=== PATIENT | male | born 1980 | race Caucasian/White ===

== ENCOUNTER → 2023-05-02 | Outpatient (CLI) | payer OTHER, SELFPAY ==
--- NOTE | 2023-05-02 12:53 | NM_ITS ---
CLINICAL: 42-year-old male with history of gastroesophageal reflux disease, epigastric pain and abdominal bloating. SEMI-SOLID PHASE 99m Tc SULFUR COLLOID GASTRIC EMPTYING STUDY COMPARISON: None available FINDINGS: The patient was administered 1.1 mCi of 99m Tc sulfur colloid mixed with oatmeal and consumed per os. Image acquisitions in the anterior-posterior projections were obtained for 60 minutes. There is prompt visualization of the stomach. There is no gastroesophageal reflux identified. The T ? raw data emptying was calculated to be 48.99 minutes, (Normal: 12-56 minutes). NM/Gastric Emptying Study IMPRESSION: 1. NORMAL 99m Tc sulfur colloid semi-solid phase (oatmeal) gastric emptying imaging examination. A. There is normal and preserved semi-solid phase gastric emptying compared to normal controls. (Koko et al, J Nucl Med Tech 38: 186, 2010). Electronically Signed: Raheem Fam, at 9:02 EDT ,
== END | disposition home or self-care (01) ==
PROVIDERS: PCP Family Medicine; Referring Provider Internal Medicine Gastroenterology; Visit Provider Internal Medicine Gastroenterology
DX: K21.9 Gastro-esophageal reflux disease without esophagitis (principal); R10.9 Unspecified abdominal pain; K92.1 Melena
CPT/HCPCS: 78264; A9541

== ENCOUNTER → 2023-06-03 | Outpatient (CLI) | payer OTHER, SELFPAY ==
[2023-06-03 12:03] LABS: Erythrocyte Sedimentation Rate 8 mm/hr (0-20)
[2023-06-03 12:05] LABS: Absolute Lymphocyte Count 2.36 X10^3/uL (0.83-4.51); Absolute Neutrophil Count 4.6 X10^3/uL (2.0-7.7); Basophil# 0.09 X10^3/uL; Basophil% 1.1 % (0-1); Eosinophil# 0.16 X10^3/uL; Hematocrit 46.5 % (40-54); Hemoglobin 15.3 g/dL (13.0-16.5); Lymphocyte # 2.36 X10^3/ul (0.83-4.51); Lymphocyte % 29.9 % (19-41); Mean Corp Hgb Conc 32.9 g/dL (32-36); Mean Corpuscular Hgb 29.7 pg (27.0-32.0); Mean Corpuscular Volume 90.1 fL (80-94); Mean Platelet Vol. 11.3 fl (6.2-12.0); Monocyte# 0.66 X10^3/uL; Monocyte% 8.4 % (0-10); NRBC Flagged by Analyzer 0 % (0-5); Neutrophil # 4.59 X10^3/uL (2.7-7.7); Neutrophil % 58.1 % (47-70); Platelet Count 272 K/mm3 (150-450); RBC Distribution Width SD 39.8 fl (35.1-43.9); Red Blood Count 5.16 M/mm3 (4.6-6.2); White Blood Count 7.9 K/mm3 (4.4-11.0)
[2023-06-03 12:51] LABS: ALB/GLOB Ratio 1.2 RATIO (0.9-2.4); AST(SGOT) 18 U/L (15-37); Alanine Aminotransfer ALT/SGPT 49 U/L (16-61); Albumin, Serum 3.8 g/dL (3.2-5.0); Alkaline Phosphatase 73 U/L (45-117); Amylase 59 U/L (25-115); Anion Gap 7 (5-15); BUN 14 mg/dL (7-18); BUN/Creat Ratio 13.3 RATIO (10-20); CRP < 2.90 mg/L (0.0-3.0); Calcium,Total 8.7 mg/dL (8.5-10.1); Chloride 107 mmol/L (98-107); Creatinine, Serum 1.05 mg/dL (0.70-1.30); EST Glomerular Filtration Rate 81 mL/min (>60); Est Glom Filt Rate - Afr Amer 98 mL/min (>60); Ferritin 283 ng/mL (26-388); Globulin 3.3 g/dL (2.2-4.2); Glucose 92 mg/dL (74-106); Lipase 38 U/L (13-75); Potassium 3.8 mmol/L (3.5-5.1); Protein, Total 7.1 g/dL (6.4-8.2); Sodium Level 139 mmol/L (136-145)
[2023-06-06 14:08] LABS: Beef <0.10 kU/L (Class 0); Chocolate <0.10 kU/L (Class 0); Clam <0.10 kU/L (Class 0); Codfish <0.10 kU/L (Class 0); Corn <0.10 kU/L (Class 0); Egg, White <0.10 kU/L (Class 0); Egg, Whole <0.10 kU/L (Class 0); Milk (Cow) <0.10 kU/L (Class 0); Peanut <0.10 kU/L (Class 0); Pork <0.10 kU/L (Class 0); SCALLOP <0.10 kU/L (Class 0); SESAME SEED <0.10 kU/L (Class 0); Shrimp <0.10 kU/L (Class 0); Soybean <0.10 kU/L (Class 0); Walnut, (Food) <0.10 kU/L (Class 0); Wheat <0.10 kU/L (Class 0)
[2023-06-06 16:09] LABS: Albumin 3.7 g/dL (2.9-4.4); Alpha-1-Globulins 0.2 g/dL (0.0-0.4); Alpha-2-Globulins 0.7 g/dL (0.4-1.0); Cytoplasmic Ab (C-ANCA) <1:20 titer (Neg:<1:20); Endomysial Antibody IgA Negative (Negative); Gamma Globulin 0.8 g/dL (0.4-1.8); Immunoglobulin A 175 mg/dL (90-386); Immunoglobulin G 819 mg/dL (603-1613); Immunoglobulin M 70 mg/dL (20-172); PROEL- TOTAL PROTEIN 6.5 g/dL (6.0-8.5); Perinuclear Ab (P-ANCA) <1:20 titer (Neg:<1:20); t-Transglutaminase IgA <2 U/mL (0-3)
== END | disposition home or self-care (01) ==
LOC: LAB 11:23
PROVIDERS: PCP Family Medicine; Referring Provider Internal Medicine Gastroenterology; Visit Provider Internal Medicine Gastroenterology
DX: K92.1 Melena (principal); R10.9 Unspecified abdominal pain; K21.9 Gastro-esophageal reflux disease without esophagitis
CPT/HCPCS: 36415; 80053; 82150; 82728; 82784; 83516; 83690; 84165; 85025; 85652; 86003; 86005; 86140; 86255; 86256; 86334

== ENCOUNTER → 2023-06-04 | Outpatient (CLI) | payer OTHER, SELFPAY ==
[2023-06-08 15:08] LABS: Pancreatic Elastase, Fecal 253 (>200)
[2023-06-09 22:06] LABS: Calprotectin, Stool 44 ug/g (0-120); Fats, Neutral Normal (.); Fats, Total Normal (.)
== END | disposition home or self-care (01) ==
LOC: LABSPEC 07:43
PROVIDERS: PCP Family Medicine; Referring Provider Internal Medicine Gastroenterology; Visit Provider Internal Medicine Gastroenterology
DX: K58.9 Irritable bowel syndrome, unspecified (principal); K92.1 Melena; R10.9 Unspecified abdominal pain; K21.9 Gastro-esophageal reflux disease without esophagitis
CPT/HCPCS: 82653; 82705; 83630; 83993; 87506

== ENCOUNTER 2023-06-08 05:29 | Day surgery (SDC) | payer OTHER, SELFPAY ==
[2023-06-08] VITALS (7 sets, daily range): BP systolic 117–142; BP diastolic 79–96; PULSE 88–105; RESP 16–18; TEMP 36.4–36.6; O2SAT 97–98; BMI 29.4
[2023-06-08] MEDS: Lactated Ringers 1,000 ML 15 ML IV (06:03)
--- NOTE | 2023-06-08 06:30 | IMM_PTH ---
PATIENT: YONIS NOVAK LOC: EN U#:[id number] AGE/SX: 42/M ROOM: RE06/08/[address]: Dr. Fabio Kennedy DO : 1980 BED: DIS: 06/08/2023 SPEC #: [id number] RECD: 06/08/23 13:55 STATUS: CHIKI RESaroj #: [id number] KELVIN: 06/08/23 06:[address]: Fabio Kennedy DEPT: IMMUNOHISTOCHEMISTRY RECD BY: Becka Jhaveri ENTERED: 06/08/23 13:57 SP TYPE: IMMUNO OTHR DR: Dr. Emily Smith DO Tissues: B - Stomach, NOS Procedures: H Pylori (initial) PHYSICIAN & INSTITUTION [place] [address] SPECIMEN INFORMATION: Tissue Source: B - Gastric body Clinical Info: GERD, abdominal pain, blood in stool Specimen Number: [id number] CPT code: 78204 METHODOLOGY: Deparaffinized sections of prefer/formalin-fixed tissue or PAP/DQ stained slides are incubated with monoclonal/polyclonal antibodies/oligonucleotide probes. Localization is made via biotin free immunoperoxidase method. Appropriate controls are performed and reacted as expected. Results on target cell population are indicated in the following table: RESULTS: ANTIBODY / CLONE RESULT Block B H Pylori (polyclonal) negative These tests were developed and their performance characteristics determined by [facility]. They may not have been cleared or approved by the U.S. Food and Drug Administration. The FDA has determined that such clearance or approval is not necessary. The above immunohistochemical/dualISH markers are ordered and reviewed by the Pathologist. INTERPRETATION: B. Gastric body, biopsy: Negative for Helicobacter pylori organisms. SJ:irineo 06/09/2023
--- NOTE | 2023-06-08 06:30 | EGD_PTH ---
PATIENT: YONIS NOVAK LOC: EN U#:[id number] AGE/SX: 42/M ROOM: RE06/08/[address]: Dr. Fabio Kennedy DO : 1980 BED: DIS: 06/08/2023 SPEC #: [id number] RECD: 06/08/23 09:42 STATUS: CHIKI RIIS #: [id number] KELVIN: 06/08/23 06:[address]: Fabio Kennedy DEPT: SURGICAL PATHOLOGY RECD BY: Luly Lyons ENTERED: 06/08/23 10:59 SP TYPE: EGD BIOPSY BRENDA DR: Dr. Emily Smith DO Tissues: A - Duodenum, NOS B - Gastric mucous membrane C - Sigmoid colon biopsy D - Ileum, NOS E - Cecum, NOS F - COLON BIOPSY G - COLON BIOPSY Procedures: Surgery Specimen Level IV HEADER OPERATION: Colonoscopy, EGD ([facility]), biopsy, polypectomy PRE-OP DIAGNOSIS: GERD, abdominal pain, blood in stool TISSUE SUBMITTED: A - Duodenum biopsy, B - Gastric body biopsy, C - Sigmoid polyp, D - Terminal ileum biopsy, E - Cecum polyp biopsy, F - Hepatic flexure polyp, G - Random colonic biopsy MICROSCOPIC DIAGNOSIS A. Duodenum, biopsy: Fragments of duodenal mucosa, no pathologic diagnosis. B. Gastric body, biopsy: Mild gastritis. See microscopic description and comment. C. Sigmoid polyp, polypectomy: Hyperplastic polyp. D. Terminal ileum, biopsy: Fragments of small intestinal mucosa, no pathologic diagnosis. E. Cecum polyp, biopsy: A fragment of colonic mucosa, no pathologic diagnosis. F. Hepatic flexure polyp, polypectomy: Tubular adenoma. Fragments of hyperplastic polyp. G. Colon, random biopsy: Fragments of colonic mucosa, no pathologic diagnosis. SJ:irineo 06/09/2023 COMMENT B. The results of immunohistochemistry for Helicobacter pylori will be reported separately ([id number]). MICROSCOPIC DESCRIPTION Slides are reviewed. B. The specimen shows fragments of gastric mucosa with chronic inflammatory cell infiltrates in the lamina propria consisting of lymphocytes and plasma cells, consistent with mild chronic gastritis. GROSS DESCRIPTION A - Received in fixative is one container labeled with the patient's name and designated duodenum biopsy. The specimen consists of multiple irregular fragments of light chavez soft tissue that in aggregate measure 1.2 x 0.5 x 0.1 cm. The specimen is totally submitted in one cassette. B - Received in fixative is one container labeled with the patient's name and designated gastric body biopsy. The specimen consists of one irregular fragment of light chavez soft tissue that measures 0.5 x 0.5 x 0.1 cm. The specimen is totally submitted in one cassette. C - Received in fixative is one container labeled with the patient's name and designated sigmoid polyp. The specimen consists of a pink-red polyp measuring 0.7 x 0.7 x 0.6 cm. The presumed base is inked. The polyp is serially sectioned and submitted entirely in one cassette. D - Received in fixative is one container labeled with the patient's name and designated terminal ileum biopsy. The specimen consists of multiple irregular fragments of light chavez soft tissue that in aggregate measure 1.2 x 0.4 x 0.1 cm. The specimen is totally submitted in one cassette. E - Received in fixative is one container labeled with the patient's name and designated cecum polyp biopsy. The specimen consists of one irregular fragment of light chavez soft tissue that measures 0.5 x 0.3 x 0.1 cm. The specimen is totally submitted in one cassette. F - Received in fixative is one container labeled with the patient's name and designated hepatic flexure polyp. The specimen consists of a pink-red polyp measuring 0.9 x 0.7 x 0.7 cm. The presumed base is inked. The polyp is serially sectioned. Also present in the container are multiple fragments of chavez soft tissue measuring in aggregate 1.2 x 0.2 x 0.1 cm. The entire specimen is submitted in one cassette. G - Received in fixative is one container labeled with the patient's name and designated random colonic biopsy. The specimen consists of multiple irregular fragments of light chavez soft tissue that in aggregate measure 1.5 x 0.4 x 0.1 cm. The specimen is totally submitted in one cassette. / SJ:rg 06/08/2023 TC:1 CPT: 51055 x7
--- NOTE | 2023-06-08 06:32 | HP.PCM_ITS ---
History and Physical Date of Admission: 06/08/23 YONIS NOVAK, is a 42 M who presents to the office today for initial consult. PCP OV 6.8.23 to establish care. Notes increased diarrhea with one episode of blood, abdominal pain and cyst in anal area. Chronic reflux symptoms and reported esophageal spasms; feels cinnamon, black pepper, night shade vegetables and dairy are triggers.? Pt reports GI issues past 5-6 years. Has long hx of GERD. Worse at night. Will wake up and aspirate on acid. Recently started taking daily Lansoprazole at lunchtime which has improved his sx. Experiences esophageal spasms. Worse when he has an empty stomach. Relieved by drinking water but then triggers his reflux. Bowels are irregular. Mostly depending on diet. Has tried elimination diet with mixed results. Can have one normal BM a day but has diarrhea with trigger foods. Has seen blood in stool a few times. ? ROS Const Constitutional: Positive for fatigue ENT ENT: No difficulty swallowing Gastro GI: Positive for change in bowel habits, constipation, diarrhea, heartburn and Blood in stool; No abdominal pain, belching, bloating, change in stool character, coffee ground emesis, cramping, difficulty swallowing, feeling full early, excessive flatus, i ncontinent of stools, Vomiting blood/hematemesis, loose stools, Black,tarry stools, nausea/dyspepsia, pain with swallowing, vomiting or other Musc Musculoskeletal: Positive for joint pain, back pain, joint swelling, muscle cramps, stiffness and restless legs Skin Skin: No yellowing of the eye or itchy eyes Neuro Neurology: Positive for restless legs Psych Psychiatric: Positive for anxiety and Positive for depression Endo Endocrine: Positive for fatigue Aller/Imm Allergy/Immunologic: No itchy eyes Damion/Lymp Hematologic/Lymphatic: No easy bleeding or easy bruising Exam Const General: cooperative and comfortable Nutritional Appearance: average body habitus and well nourished HENMT Head: normal to inspection Ears: hearing grossly normal bilaterally Nose: external nose normal Face and sinus: normal facial exam Mouth: oral mucosae normal Throat: posterior oropharynx normal Eyes General: appearance normal, both eyes and all related structures Neck Neck: normal visual inspection Chest Chest palpation & inspection: normal inspection of the chest and normal palpation of entire chest wall Resp Effort & Inspection: normal respiratory effort Auscultation: Bilateral: Clear to Auscultation Cardio Palpation: normal PMI Rate: regular rate Rhythm: regular rhythm GI Inspection: normal to inspection Auscultation: normal bowel sounds Percussion: normal to percussion Palpation: no hepatosplenomegaly Skin General: no rashes or lesions noted Neuro General: patient alert Extrem General: normal to inspection Psych Affect: normal affect Assessment and Plan Assessment and Plan (1) GERD (gastroesophageal reflux disease): Status: Acute Plan: He will need to undergo upper endoscopy to evaluate his upper GI tract for gastroesophageal reflux disease. We will give him short course of pantoprazole therapy to see if he has any improvement in his symptoms. You need to be screened for Shultz's esophagus (2) Abdominal pain: Status: Acute Plan: hiatal hernia and any other upper GI pathology that may be contributing to his symptoms. Differential diagnosis for his bloating does include air swallowing, excess acid therefore excess bicarbonate that goes down to bicarbonate. (3) Blood in stool: Status: Acute Plan: He will undergo evaluation of his lower GI tract for the blood in the stool. He was explained alternatives, risk, benefits include not withstanding bleeding, infection, sepsis, perforation, need for emergent surgery . He will have an ASA of 2. Orders: Orders ELLEN + Protein Elect, Serum Today K21.9 - Gastro-esophageal reflux disease without esophagitis, K92.1 - Melena, R10.9 - Unspecified abdominal pain Ferritin Today K21.9 - Gastro-esophageal reflux disease without esophagitis, K92.1 - Melena, R10.9 - Unspecified abdominal pain ANCA Today K21.9 - Gastro-esophageal reflux disease without esophagitis, K92.1 - Melena, R10.9 - Unspecified abdominal pain Celiac Disease Profile Today K21.9 - Gastro-esophageal reflux disease without esophagitis, K92.1 - Melena, R10.9 - Unspecified abdominal pain Comprehensive Metabolic Profil Today K21.9 - Gastro-esophageal reflux disease without esophagitis, K92.1 - Melena, R10.9 - Unspecified abdominal pain CBC W/Diff, Automated Today K21.9 - Gastro-esophageal reflux disease without esophagitis, K92.1 - Melena, R10.9 - Unspecified abdominal pain CRP Today K21.9 - Gastro-esophageal reflux disease without esophagitis, K92.1 - Melena, R10.9 - Unspecified abdominal pain Erythrocyte Sed Rate Today K21.9 - Gastro-esophageal reflux disease without esophagitis, K92.1 - Melena, R10.9 - Unspecified abdominal pain Miscellaneous Lab Procedure Today K21.9 - Gastro-esophageal reflux disease without esophagitis, K92.1 - Melena, R10.9 - Unspecified abdominal pain Amylase Today K21.9 - Gastro-esophageal reflux disease without esophagitis, K92.1 - Melena, R10.9 - Unspecified abdominal pain Lipase Today K21.9 - Gastro-esophageal reflux disease without esophagitis, K92.1 - Melena, R10.9 - Unspecified abdominal pain Fecal Fat, Qualitative Today K21.9 - Gastro-esophageal reflux disease without esophagitis, K92.1 - Melena, R10.9 - Unspecified abdominal pain Pancreatic Elastase, Fecal Today K21.9 - Gastro-esophageal reflux disease without esophagitis, K92.1 - Melena, R10.9 - Unspecified abdominal pain BERNARDO Comprehensive Panel Today K21.9 - Gastro-esophageal reflux disease without esophagitis, K92.1 - Melena, R10.9 - Unspecified abdominal pain Immunoglobulins G/A/M/E Today K21.9 - Gastro-esophageal reflux disease without esophagitis, K92.1 - Melena, R10.9 - Unspecified abdominal pain Stool Lactoferrin/WBC Today K21.9 - Gastro-esophageal reflux disease without esophagitis, K58.9 - Irritable bowel syndrome without diarrhea, K92.1 - Melena, R10.9 - Unspecified abdominal pain ENTERIC PATHOGEN PANEL STOOL Today K21.9 - Gastro-esophageal reflux disease without esophagitis, K58.9 - Irritable bowel syndrome without diarrhea, K92.1 - Melena, R10.9 - Unspecified abdominal pain Calprotectin, Stool Today K21.9 - Gastro-esophageal reflux disease without esophagitis, K92.1 - Melena, R10.9 - Unspecified abdominal pain Allergen, Food Profile Today K21.9 - Gastro-esophageal reflux disease without esophagitis, K92.1 - Melena, R10.9 - Unspecified abdominal pain Allergen, Rast Food Profile Today K21.9 - Gastro-esophageal reflux disease without esophagitis, K92.1 - Melena, R10.9 - Unspecified abdominal pain Gastric Emptying Study Today K21.9 - Gastro-esophageal reflux disease without esophagitis, K92.1 - Melena, R10.9 - Unspecified abdominal pain I have examined the patient and the H&P has been reviewed. There are no clinical changes since date of exam.
--- NOTE | 2023-06-08 07:11 | OP.CCLET_ITS ---
06/08/2023 Emily Smith [address] [place] [address] Re : Upper GI endoscopy procedure for Lee Lancaster Dear Dr. Smith This procedure was performed on Thursday, June 08, 2023. My impressions and recommendations are as follows: Impressions : - Grade I esophageal varices. - Erythematous mucosa in the gastric body. Biopsied. - Congested duodenal mucosa. Biopsied. Recommendations : - Discharge patient to home. - Resume previous diet. - Continue present medications. - Await pathology results. - Ultrasound of the liver My findings are described in the full procedure note, which is enclosed. If I can be of further assistance, please feel free to contact me at . Sincerely, Fabio Kennedy, 06/08/2023 7:10:24 AM This report has been signed electronically.
--- NOTE | 2023-06-08 07:11 | OP.EGD_ITS ---
Patient Name: Lee Lancaster Procedure Date: 06/08/2023 6:32 AM Date of : 1980 Age: 42 Procedure: Upper GI endoscopy Indications: Epigastric abdominal pain, Dyspepsia Providers: Fabio Kennedy DO Referring MD: Emily Smith Medicines: Monitored Anesthesia Care Patient Profile: This is a 42 year old male. Refer to note in patient chart for documentation of history and physical. Patient has symptoms of chronic epigastric abdominal pain and chronic dyspepsia. Complications: No immediate complications. Procedure: Pre-Anesthesia Assessment: - Prior to the procedure, a History and Physical was performed, and patient medications and allergies were reviewed. The patient is competent. The risks and benefits of the procedure and the sedation options and risks were discussed with the patient. All questions were answered and informed consent was obtained. Patient identification and proposed procedure were verified by the physician in the pre-procedure area. Mental Status Examination: alert and oriented. Airway Examination: normal oropharyngeal airway and neck mobility. Respiratory Examination: clear to auscultation. CV Examination: normal. Prophylactic Antibiotics: The patient does not require prophylactic antibiotics. Prior Anticoagulants: The patient has taken no anticoagulant or antiplatelet agents. ASA Grade Assessment: II - A patient with mild systemic disease. After reviewing the risks and benefits, the patient was deemed in satisfactory condition to undergo the procedure. The anesthesia plan was to use monitored anesthesia care (MAC). Immediately prior to administration of medications, the patient was re-assessed for adequacy to receive sedatives. The heart rate, respiratory rate, oxygen saturations, blood pressure, adequacy of pulmonary ventilation, and response to care were monitored throughout the procedure. The physical status of the patient was re-assessed after the procedure. After obtaining informed consent, the endoscope was passed under direct vision. Throughout the procedure, the patient's blood pressure, pulse, and oxygen saturations were monitored continuously. The Colonoscope was introduced through the mouth, and advanced to the second part of duodenum. The upper GI endoscopy was accomplished without difficulty. The patient tolerated the procedure well. Scope In: 6:39:30 AM Scope Out: 6:43:43 AM Total Procedure Duration Time 0 hours 4 minutes 13 seconds Findings: Grade I varices were found in the lower third of the esophagus. They were 5 mm in largest diameter. Patchy mildly erythematous mucosa without bleeding was found in the gastric body. Biopsies were taken with a cold forceps for histology. Verification of patient identification for the specimen was done. Estimated blood loss was minimal. Biopsies were taken with a cold forceps for Helicobacter pylori testing. Verification of patient identification for the specimen was done. Estimated blood loss was minimal. Patchy mildly congested mucosa without active bleeding and with no stigmata of bleeding was found in the duodenal bulb, in the first portion of the duodenum and in the second portion of the duodenum. Biopsies were taken with a cold forceps for histology. Verification of patient identification for the specimen was done. Estimated blood loss was minimal. Impression: - Grade I esophageal varices. - Erythematous mucosa in the gastric body. Biopsied. - Congested duodenal mucosa. Biopsied. Recommendation: - Discharge patient to home. - Resume previous diet. - Continue present medications. - Await pathology results. - Ultrasound of the liver Procedure Code(s): --- Professional --- 51999, Esophagogastroduodenoscopy, flexible, transoral; with biopsy, single or multiple CPT copyright 2021 [employer]. All rights reserved. The codes documented in this report are preliminary and upon braille coder review may be revised to meet current compliance requirements. Fabio Kennedy DO 06/08/2023 7:10:24 AM This report has been signed electronically. Number of Addenda: 0 Note Initiated On: 06/08/2023 6:32 AM
--- NOTE | 2023-06-08 07:15 | OP.COLON_ITS ---
Patient Name: Lee Lancaster Procedure Date: 06/08/2023 6:44 AM Date of : 1980 Age: 42 Procedure: Colonoscopy Indications: Screening for colorectal malignant neoplasm Providers: Fabio Kennedy DO Referring MD: Emily Smith Medicines: Monitored Anesthesia Care Patient Profile: This is a 42 year old male. Refer to note in patient chart for documentation of history and physical. Patient has symptoms of chronic epigastric abdominal pain and chronic dyspepsia. Last Colonoscopy: none. The patient's first colonoscopy is today. Complications: No immediate complications. Procedure: Pre-Anesthesia Assessment: - Prior to the procedure, a History and Physical was performed, and patient medications and allergies were reviewed. The patient is competent. The risks and benefits of the procedure and the sedation options and risks were discussed with the patient. All questions were answered and informed consent was obtained. Patient identification and proposed procedure were verified by the physician in the pre-procedure area. Mental Status Examination: alert and oriented. Airway Examination: normal oropharyngeal airway and neck mobility. Respiratory Examination: clear to auscultation. CV Examination: normal. Prophylactic Antibiotics: The patient does not require prophylactic antibiotics. Prior Anticoagulants: The patient has taken no anticoagulant or antiplatelet agents. ASA Grade Assessment: II - A patient with mild systemic disease. After reviewing the risks and benefits, the patient was deemed in satisfactory condition to undergo the procedure. The anesthesia plan was to use monitored anesthesia care (MAC). Immediately prior to administration of medications, the patient was re-assessed for adequacy to receive sedatives. The heart rate, respiratory rate, oxygen saturations, blood pressure, adequacy of pulmonary ventilation, and response to care were monitored throughout the procedure. The physical status of the patient was re-assessed after the procedure. After I obtained informed consent, the scope was passed under direct vision. Throughout the procedure, the patient's blood pressure, pulse, and oxygen saturations were monitored continuously. The Colonoscope was introduced through the anus and advanced to the cecum, identified by appendiceal orifice and ileocecal valve. The colonoscopy was performed without difficulty. The patient tolerated the procedure well. The quality of the bowel preparation was adequate. The terminal ileum, ileocecal valve, appendiceal orifice, and rectum were photographed. Scope In: 6:45:31 AM Scope Withdrawal Time 0 hours 12 minutes 27 seconds Scope Out: 7:02:18 AM Total Procedure Duration Time 0 hours 16 minutes 47 seconds Findings: Hemorrhoids were found on perianal exam. Non-bleeding internal hemorrhoids were found during retroflexion. The hemorrhoids were mild, small and Grade I (internal hemorrhoids that do not prolapse). Multiple small-mouthed diverticula were found in the recto-sigmoid colon, sigmoid colon and descending colon. Three sessile polyps were found in the sigmoid colon and hepatic flexure. The polyps were 1 to 2 mm in size. These polyps were removed with a saline injection-lift technique using a cold snare. Resection and retrieval were complete. Verification of patient identification for the specimen was done. Estimated blood loss was minimal. A 4 mm polyp was found in the cecum. The polyp was sessile. The polyp was removed with a jumbo cold forceps. Resection and retrieval were complete. Verification of patient identification for the specimen was done. Estimated blood loss was minimal. A patchy area of the distal ileum was congested. Biopsies were taken with a cold forceps for histology. Verification of patient identification for the specimen was done. Estimated blood loss was minimal. Impression: - Hemorrhoids found on perianal exam. - Non-bleeding internal hemorrhoids. - Diverticulosis in the recto-sigmoid colon, in the sigmoid colon and in the descending colon. - Three 1 to 2 mm polyps in the sigmoid colon and at the hepatic flexure, removed using injection-lift and a cold snare. Resected and retrieved. - One 4 mm polyp in the cecum, removed with a jumbo cold forceps. Resected and retrieved. - Congested mucosa in the distal ileum. Biopsied. Recommendation: - Discharge patient to home. - Resume previous diet. - Continue present medications. - Await pathology results. - Repeat colonoscopy in 3 years for surveillance. Procedure Code(s): --- Professional --- 79382, Colonoscopy, flexible; with removal of tumor(s), polyp(s), or other lesion(s) by snare technique 67412, 59, Colonoscopy, flexible; with biopsy, single or multiple 38168, Colonoscopy, flexible; with directed submucosal injection(s), any substance CPT copyright 2021 [employer]. All rights reserved. The codes documented in this report are preliminary and upon sand bobber review may be revised to meet current compliance requirements. Fabio Kennedy DO 06/08/2023 7:15:13 AM This report has been signed electronically. Number of Addenda: 0 Note Initiated On: 06/08/2023 6:44 AM
--- NOTE | 2023-06-08 07:15 | OP.CCLET_ITS ---
06/08/2023 Emily Smith [address] [place] [address] Re : Colonoscopy procedure for Lee [place] Dear Dr. Smith This procedure was performed on Thursday, June 08, 2023. My impressions and recommendations are as follows: Impressions : - Hemorrhoids found on perianal exam. - Non-bleeding internal hemorrhoids. - Diverticulosis in the recto-sigmoid colon, in the sigmoid colon and in the descending colon. - Three 1 to 2 mm polyps in the sigmoid colon and at the hepatic flexure, removed using injection-lift and a cold snare. Resected and retrieved. - One 4 mm polyp in the cecum, removed with a jumbo cold forceps. Resected and retrieved. - Congested mucosa in the distal ileum. Biopsied. Recommendations : - Discharge patient to home. - Resume previous diet. - Continue present medications. - Await pathology results. - Repeat colonoscopy in 3 years for surveillance. My findings are described in the full procedure note, which is enclosed. If I can be of further assistance, please feel free to contact me at . Sincerely, Fabio Kennedy DO 06/08/2023 7:15:13 AM This report has been signed electronically.
== END 2023-06-08 07:51 | disposition home or self-care (01) ==
LOC: EN 05:35 → AC 05:35
PROVIDERS: PCP Family Medicine; Referring Provider Family Medicine; Visit Provider Internal Medicine Gastroenterology
PROC: 0DJD8ZZ Inspection of Lower Intestinal Tract, Via Natural or Artificial Opening Endoscopic (ICD-10-PCS; CPT 45378; principal; 2023-06-08 06:25)
DX: Z12.11 Encounter for screening for malignant neoplasm of colon (principal); I85.00 Esophageal varices without bleeding; K57.30 Diverticulosis of large intestine without perforation or abscess without bleeding; K63.89 Other specified diseases of intestine; K21.9 Gastro-esophageal reflux disease without esophagitis; K31.89 Other diseases of stomach and duodenum; K64.0 First degree hemorrhoids; R10.9 Unspecified abdominal pain; K92.1 Melena; D12.3 Benign neoplasm of transverse colon; K29.70 Gastritis, unspecified, without bleeding
CPT/HCPCS: 45380; 45385; 43239; 45381; 88305; 88342; J7120; J2405

== ENCOUNTER → 2023-06-30 | Outpatient (CLI) | payer SELFPAY ==
--- NOTE | 2023-06-30 09:20 | US_ITS ---
STUDY: ABDOMINAL ULTRASOUND - RIGHT UPPER QUADRANT; ELASTOGRAPHY REASON FOR VISIT: Male, 42 years old. Esophageal varices. TECHNIQUE: Ultrasound evaluation of the right upper quadrant was performed with real-time and static majano-scale imaging. Point quantification shear wave elastography was performed (Agensys). TECHNICAL QUALITY: Adequate. COMPARISON: None. FINDINGS: Liver: The liver is mildly enlarged and measures 17.2 cm. There is normal echogenicity of the liver. The bile ducts are within normal limits. There is hepatic color flow. The direction of portal flow is hepatopetal. There is no demonstrated mass lesion. Median liver stiffness measured 7.5 kPa. Gallbladder: Normal distended gallbladder. The gallbladder wall measures 1.8 mm. There is a negative sonographic Bryan''s sign. There is no pericholecystic fluid. There are no gallstones. Common Bile Duct (C.B.D.): The common bile duct measures 3.8 mm. Pancreas: There is increased echogenicity of the pancreas. There is no demonstrated pancreatic mass or cyst. Right Kidney: Normal size of the right kidney. The right kidney measures 12.3 cm x 6.1 cm x 6.4 cm. Normal renal cortex. The right cortex measures 1.6 cm. There is no demonstrated renal mass or cyst. There is no right hydronephrosis. US/ABD Limited w/ Elastography IMPRESSION: 1. Liver stiffness measures 7.5 kPa compatible with F2-F3 (Mild to moderate liver fibrosis) Metavir score. Electronically Signed: Adama Monson MD at 14:09 EDT ,
== END | disposition home or self-care (01) ==
PROVIDERS: PCP Family Medicine; Referring Provider Internal Medicine Gastroenterology; Visit Provider Internal Medicine Gastroenterology
DX: I85.00 Esophageal varices without bleeding (principal)
CPT/HCPCS: 76705; 76981

== ENCOUNTER → 2023-07-13 | Outpatient (CLI) | payer OTHER, SELFPAY ==
--- NOTE | 2023-07-13 07:07 | CT_ITS ---
STUDY: CTA CHEST, ABDOMEN T PELVIS WITH CONTRAST REASON FOR EXAM: Male, 43 years old. Esophageal varices, abdominal pain RADIATION DOSAGE (If Supplied By Facility): CTDIvol = ( 15.05 ) mGy, DLP = ( 1375.96 ) mGycm TECHNIQUE: Transaxial imaging was performed following intravenous administration of IV 100mL Isovue-370. Multiplanar coronal and sagittal images were reformatted. Individualized dose optimization techniques were used for this CT. COMPARISON: No relevant priors. FINDINGS: CHEST Small benign-appearing bilateral axillary lymph nodes. Minimal linear atelectasis and/or scarring in the right midlung. There is no demonstrated pleural abnormality. Normal heart and pericardium. Normal mediastinum. Normal hilar regions. Normal unenhanced pulmonary arteries. Normal aorta arch and descending thoracic aorta. Normal osseous structures. There is no demonstrated abnormality of the visualized upper abdomen. ABDOMEN The visualized lung bases are unremarkable. The visualized portions of the heart are within normal limits. There is decreased attenuation of the liver consistent with steatosis. Normal gallbladder and extrahepatic biliary system. Normal spleen. Normal pancreas. Normal bilateral adrenal glands. Normal right kidney. There is a 10.8 cm x 10.3 cm cyst in the upper lateral anterior aspect of the left kidney. There is a small hiatal hernia. Normal small intestine. Normal colon. The appendix is visualized and appears normal. Normal abdominal aorta. Normal inferior vena cava. Normal retroperitoneum. Normal abdominal wall. There are degenerative changes of the visualized lumbar spine. PELVIS Normal urinary bladder. Normal visualized small intestine. Normal visualized colon. There is no pelvic fluid. There is no pelvic lymphadenopathy or mass lesion. Normal visualized pelvic arteries. Normal abdominal wall. Normal osseous structures. CT/CTA Chst, Abd, Pel W and/or WO IMPRESSION: Normal enhanced CTA chest, abdomen T pelvis examination. Electronically Signed: Adama Monson MD at 14:29 EDT ,
[2023-07-13 07:32] LABS: CREATININE FINGERSTICK 1.2 mg/dL (0.70-1.30); EGFR FINGERSTICK > 60.0000 mL/min (>60)
== END | disposition home or self-care (01) ==
LOC: CT 07:07
PROVIDERS: PCP Family Medicine; Referring Provider Internal Medicine Gastroenterology; Visit Provider Internal Medicine Gastroenterology
DX: I85.00 Esophageal varices without bleeding (principal); R10.9 Unspecified abdominal pain
CPT/HCPCS: 71275; 74174; Q9967

== ENCOUNTER → 2023-08-29 | Outpatient (CLI) | payer OTHER, SELFPAY ==
--- NOTE | 2023-08-29 10:34 | MRI_ITS ---
MRI Abdomen w/ and w/out contrast 08/29/2023 10:54 AM COMPARISON: None CLINICAL HISTORY: non-cirrhotic portal HTN TECHNIQUE: Multiplanar T1 and T2 weighted, diffusion and dynamic post-gadolinium images were obtained through the abdomen before and after administration of 23 cc of IV Clariscan. FINDINGS: Liver: Slight increase in intensity on T1 opposed phase images compared to T1 in phase images. Overall intensity on T2-weighted images is significantly decreased. Gallbladder: Unremarkable Pancreas: Slight overall decrease in intensity on T2-weighted images. Spleen: Unremarkable Adrenal Glands: Unremarkable Kidneys: Simple 10.2 cm simple cyst in the left kidney. GI Tract: Unremarkable Lymphadenopathy: Absent Reproductive: Unremarkable Bladder: Unremarkable Ascites: Absent Bones: No suspicious lesions MRI/MRI Abd WITH and W/O Contrast IMPRESSION: Findings most suspicious for primary hemachromatosis. Correlate with lab values. 10.2 cm simple cyst in the left kidney. Electronically Signed: Jacobo Rasmussen MD at 19:28 EST ,
[2023-08-29 11:01] LABS: CREATININE FINGERSTICK 1.4 mg/dL (0.70-1.30)
== END | disposition home or self-care (01) ==
PROVIDERS: PCP Family Medicine; Referring Provider Internal Medicine Gastroenterology; Visit Provider Internal Medicine Gastroenterology
DX: K76.6 Portal hypertension (principal)
CPT/HCPCS: 74183; A9575; A4216

== ENCOUNTER → 2023-09-07 | Outpatient (CLI) | payer OTHER, SELFPAY ==
[2023-09-07 16:16] LABS: Absolute Lymphocyte Count 2.62 X10^3/uL (0.83-4.51); Absolute Neutrophil Count 4.9 X10^3/uL (2.0-7.7); Basophil# 0.09 X10^3/uL; Basophil% 1.1 % (0-1); Eosinophil# 0.18 X10^3/uL; Eosinophils% 2.1 % (0-5); Hemoglobin 15.7 g/dL (13.0-16.5); Lymphocyte # 2.62 X10^3/ul (0.83-4.51); Lymphocyte % 30.9 % (19-41); Mean Corpuscular Hgb 28.6 pg (27.0-32.0); Mean Corpuscular Volume 89.4 fL (80-94); Mean Platelet Vol. 11.2 fl (6.2-12.0); Monocyte# 0.68 X10^3/uL; NRBC Flagged by Analyzer 0 % (0-5); Neutrophil # 4.87 X10^3/uL (2.7-7.7); Neutrophil % 57.5 % (47-70); Platelet Count 294 K/mm3 (150-450); RBC Distribution Width CV 12.1 % (11.6-14.6); RBC Distribution Width SD 39.8 fl (35.1-43.9); Red Blood Count 5.48 M/mm3 (4.6-6.2); White Blood Count 8.5 K/mm3 (4.4-11.0)
[2023-09-07 16:46] LABS: ALB/GLOB Ratio 1.1 RATIO (0.9-2.4); AST(SGOT) 16 U/L (15-37); Alanine Aminotransfer ALT/SGPT 33 U/L (16-61); Alkaline Phosphatase 90 U/L (45-117); Anion Gap 6 (5-15); BUN 12 mg/dL (7-18); BUN/Creat Ratio 10.1 RATIO (10-20); Calcium,Total 9.3 mg/dL (8.5-10.1); Chloride 105 mmol/L (98-107); Cholesterol 217 mg/dL (200); Creatinine, Serum 1.19 mg/dL (0.70-1.30); EST Glomerular Filtration Rate 70 mL/min (>60); Est Glom Filt Rate - Afr Amer 85 mL/min (>60); Ferritin 304 ng/mL (26-388); Globulin 3.6 g/dL (2.2-4.2); Glucose 99 mg/dL (74-106); High Density Lipoprotein 57 mg/dL; Iron Binding Capacity,Total 312 ug/dL (250-450); Potassium 3.9 mmol/L (3.5-5.1); Protein, Total 7.6 g/dL (6.4-8.2); Sodium Level 137 mmol/L (136-145); Triglycerides 280 mg/dL; Very Low Density Lipoprotein 56 mg/dL (5-40)
[2023-09-07 16:52] LABS: Hemoglobin A1c 4.9 % (3.8-5.6)
[2023-09-07 17:14] LABS: HIV - WCH Non-Reactive (Nonreactive)
[2023-09-09 15:07] LABS: Anti-Mitochondrial AB <20.0 Units (0.0-20.0)
[2023-09-16 21:07] LABS: AFP, Tumor Marker < 1.8 ng/mL (0.0-6.9); Angiotensin Convert Enzyme 26 U/L (14-82); Anti-Smooth Muscle ABS 3 Units (0-19); Ceruloplasmin 23.1 mg/dL (16.0-31.0); Copper, Serum or Plasma 102 ug/dL (69-132); HEPATITIS B SURFACE AG Negative (Negative); Haptoglobin 150 mg/dL (23-355); Hep C Antibodies Non Reactive (Non Reactive); Hepatitis A IgM Antibody Negative (Negative); Hepatitis B Core AB IgM Negative (Negative); Transferrin 241 mg/dL (177-329)
== END | disposition home or self-care (01) ==
PROVIDERS: PCP Family Medicine; Visit Provider Internal Medicine Gastroenterology
DX: E83.119 Hemochromatosis, unspecified (principal)
CPT/HCPCS: 36415; 80053; 80061; 80074; 82105; 82164; 82390; 82525; 82728; 83010; 83036; 83516; 83550; 84466; 85025; 86703

== ENCOUNTER → 2023-12-27 | Outpatient (CLI) | payer OTHER, SELFPAY ==
[2023-12-27] VITALS (13 sets, daily range): BP systolic 116–142; BP diastolic 82–95; PULSE 80–88; RESP 11–19; TEMP 36.7; O2SAT 95–100; BMI 30.8
[2023-12-27 08:13] LABS: Platelet Count 257 K/mm3 (150-450)
[2023-12-27 08:34] LABS: Prothrombin Time (Protime)PT. 13.2 SECONDS (11.7-14.9)
[2023-12-27] MEDS: Midazolam 2 MG/2 ML Syringe IV (08:51)
[2023-12-27] MEDS: 0.9% Normal Saline (250mL Bag) 250 ML 15 ML IV (08:51)
[2023-12-27] MEDS: fentaNYL 100 MCG/2 ML Ampul IV (08:54)
[2023-12-27] MEDS: Lidocaine 2% (20 ml mdv) 20 ML Vial INFILT (09:05)
--- NOTE | 2023-12-27 09:05 | LIVB_PTH ---
PATIENT: YONIS NOVAK LOC: CT U#:[id number] AGE/SX: 43/M ROOM: RE12/27/[address]: Dr. Fabio Kennedy DO : 1980 BED: DIS: 12/27/2023 SPEC #: [id number] RECD: 12/27/23 09:58 STATUS: CHIKI RESaroj #: [id number] KELVIN: 12/27/23 09:[address]: Fabio Kennedy DEPT: SURGICAL PATHOLOGY RECD BY: Luly Lyons ENTERED: 12/27/23 09:58 SP TYPE: LIVER BX BRENDA DR: DO Jes [place], COB SAWYER-C Tissues: Liver, NOS Procedures: PAS with Diastase (control) Trichrome (control) Special Stain Group II PAS Stain (control) Surgery Specimen Level V Retic (control) Iron Stain (control) HEADER OPERATION: CT guided liver biopsy PRE-OP DIAGNOSIS: Hemochromatosis TISSUE SUBMITTED: Liver biopsy MICROSCOPIC DIAGNOSIS Liver, CT guided core biopsy; Liver parenchymal tissue with minimal increase of iron deposition (trace to1+) and mild focal portal chronic inflammation. See microscopic description and comment. Amanda 12/28/23 COMMENT Correlation with clinical, laboratory and radiologic findings and appropriate follow up are necessary. MICROSCOPIC DESCRIPTION Slides are reviewed. The specimen shows liver parenchymal tissue with preserved lobular architecture. Hepatocytes are unremarkable. Lobular inflammation is not seen. Portal area shows focal mild chronic inflammation. Interface inflammation is not seen. Reticulate stain shows preserved lobular architecture. Trichrome stain does not show any significant increased portal or periportal fibrosis. Iron stain shows focal minimal increase of iron deposition in hepatocytes (trace to 1+). PAS stain with and without diastase do not show any abnormal accumulation of protein. All stains are performed with appropriate match controls. GROSS DESCRIPTION Received is one container labeled with the patient's name and not further designated. The specimen consists of multiple elongated fragments of light chavez soft tissue that in aggregate measure 1.5 x 0.3 x 0.1 cm. The specimen is totally submitted in one cassette. DENNISE/ 12/27/23 TC:5 CPT: 10948, 07441n3
--- NOTE | 2023-12-27 10:06 | PRO.PCM_ITS ---
Procedure Report Date of Procedure: 12/27/23 Assessment & Plan Assessment/Plan (1) Hemochromatosis: QUALIFIERS: Hemochromatosis type: unspecified Qualified Code(s): E83.119 - Hemochromatosis, unspecified PLAN: PROCEDURE: CT DIRECTED CORE LIVER BIOPSY ORDERING PROVIDER: Dr. Kennedy INDICATION: Male, 43 years old. Ascites. PROVIDER: EFREM Perdomo CONSENT: Written informed consent was obtained having explained the risks, benefits and alternatives in detail with the patient who accepted the risks and agreed to proceed. Laboratory review and clinical assessment was performed. PRE-PROCEDURE SEDATION ASSESSMENT: Current history and physical dictated by referring provider and reviewed. No clinical changes since date of exam. Patient has an ASA Class of 2. PROCEDURAL SEDATION PROTOCOL: The Drugs used were: 2 mg Versed, IV, and 50 mcg Fentanyl, IV. The sedation time was: 15 minutes, starting at 8:57 AM and terminated at 9:12 AM. The procedural sedation protocol was independently monitored by the department nurse. RADIATION DOSAGE (If Supplied By Facility): CTDIvol = 24.07 mGy, DLP = 837.39 mGycm Individualized dose optimization techniques were used for this CT. TECHNIQUE: The patient was placed in a supine position. Using CT image guidance with image documentation, a suitable location in the right lobe of the liver was ident ified. The skin surface was prepped with betadine and draped in a sterile fashion. 2% lidocaine was used for local anesthesia. Using an anterior approach, puncture of the liver was uneventful with an 18-gauge core needle system. 3, 18-gauge core samples were obtained, and submitted in formalin to the pathologist for further assessment. The needle was removed. An occlusive sterile dressing was applied. Patient tolerated the procedure well, and returned to the holding bay for nursing monitoring. IMPRESSION: 1. CT directed core needle biopsy of the liver, using CT image guidance with image documentation as described. 2. Procedural Sedation protocol utilized with independent monitoring. Procedures Radiology Radiology CT Procedures: 58226 Biopsy Liver
== END | disposition home or self-care (01) ==
PROVIDERS: Nurse Practitioner Acute Care; PCP Family Medicine; Referring Provider Internal Medicine Gastroenterology; Visit Provider Internal Medicine Gastroenterology
DX: Z01.818 Encounter for other preprocedural examination (principal); K76.6 Portal hypertension; I85.00 Esophageal varices without bleeding; E83.119 Hemochromatosis, unspecified
CPT/HCPCS: 47000; 36415; 77012; 85049; 85610; 85730; 88307; 88313; 99156; J7050; A4216

== ENCOUNTER → 2025-03-20 | Outpatient (CLI) | payer OTHER, SELFPAY ==
[2025-03-20 12:53] LABS: Absolute Lymphocyte Count 2.13 X10^3/uL (0.83-4.51); Basophil# 0.06 X10^3/uL; Basophil% 0.8 % (0-1); Eosinophil# 0.11 X10^3/uL; Eosinophils% 1.4 % (0-5); Hematocrit 47.2 % (40-54); Hemoglobin 15.7 g/dL (13.0-16.5); Lymphocyte # 2.13 X10^3/ul (0.83-4.51); Lymphocyte % 26.9 % (19-41); Mean Corp Hgb Conc 33.3 g/dL (32-36); Mean Corpuscular Hgb 29.7 pg (27.0-32.0); Mean Corpuscular Volume 89.4 fL (80-94); Mean Platelet Vol. 11.7 fl (6.2-12.0); Monocyte# 0.58 X10^3/uL; Monocyte% 7.3 % (0-10); NRBC Flagged by Analyzer 0 % (0-5); Neutrophil # 4.98 X10^3/uL (2.7-7.7); Platelet Count 262 K/mm3 (150-450); RBC Distribution Width CV 12.5 % (11.6-14.6); RBC Distribution Width SD 40.7 fl (35.1-43.9); Red Blood Count 5.28 M/mm3 (4.6-6.2); White Blood Count 7.9 K/mm3 (4.4-11.0)
[2025-03-20 13:19] LABS: ALB/GLOB Ratio 1.6 RATIO (0.9-2.4); AST(SGOT) 20 U/L (<=37); Alanine Aminotransfer ALT/SGPT 30 U/L (<=46); Albumin, Serum 4.7 g/dL (3.5-5.0); Alkaline Phosphatase 83 U/L (40-129); Anion Gap 13 (5-15); BUN 16 mg/dL (4-19); BUN/Creat Ratio 15.1 RATIO (10-20); Calcium,Total 9.9 mg/dL (7.6-11.0); Carbon Dioxide 24.1 mmol/L (21.0-32.0); Chloride 102 mmol/L (98-108); Cholesterol 206 mg/dL (<=200); Creatinine, Serum 1.08 mg/dL (0.70-1.20); EST Glomerular Filtration Rate 86 (>60); Globulin 2.9 g/dL (2.2-4.2); Glucose 97 mg/dL (70-99); High Density Lipoprotein 68 mg/dL; Low Density Lipoprotein Calc. 116 mg/dL; Potassium 4.6 mmol/L (3.3-5.1); Protein, Total 7.5 g/dL (5.9-8.4); Sodium Level 139 mmol/L (133-145); Total Bilirubin 0.65 mg/dL (0.00-1.30); Triglycerides 112 mg/dL; Very Low Density Lipoprotein 22 mg/dL (5-40); cholesterol:hdl ratio screen 3.05
== END | disposition home or self-care (01) ==
LOC: BFHLAB 08:23
PROVIDERS: PCP Family Medicine; Visit Provider Family Medicine
DX: Z00.00 Encounter for general adult medical examination without abnormal findings (principal); E78.5 Hyperlipidemia, unspecified; Z51.81 Encounter for therapeutic drug level monitoring
CPT/HCPCS: 36415; 80053; 80061; 85025